=== PATIENT | female | born 1950 | race Caucasian/White ===

== ENCOUNTER → 2016-12-26 | Day surgery (SDC) | payer MEDICARE ==
[~2016-12-26] VITALS: Ht 170.2 cm; Wt 83.5 kg
[~2016-12-26] MED LIST: ASPI-973 PO; CETI10CA PO; FEXO-15 PO; LORA0.5T PO; Lactated Ringer's 1,000 ML IV ONE; Lactated Ringer's 1,000 ML IV SCH; MetoCLOpramide 5 mg/mL 2 mL Inj IVPUSH PRN; Ondansetron 2 mg/mL 2 mL Inj IVPUSH PRN; PROP60TA17 PO; Propofol 10,000 mCg/mL 20 mL Inj ONE; RANI75TA21 PO
[2016-12-26 12:22] VITALS: BP 130/55; PULSE 55; RESP 16; O2SAT 99
--- NOTE | 2016-12-26 12:50 | PCM.HPANE ---
Patient Data Surgeon Admitting Provider: Attending Provider:Boogie Alanis MD Primary Care Physician:Ra Olguin MD Other Provider: Reason for Visit Blood In Stool Ht/WT & BMI Body Mass Index Allergies Coded Allergies: Sulfa (Sulfonamide Antibiotics) (Verified Allergy, Intermediate, HIVES, ) hydrocodone (Verified Adverse Reaction, Unknown, Nausea,Vomiting, 12/11/13) Past Anesthesia History Anesthesia History: Denies:: Abnormal Airway, Anesthesia Reactions, Difficult Intubation, Fam Anesthesia Reaction, Fam Malignant Hypertherm, Malignant Hyperthermia Diabetes History Hx Diabetes?: No MRSA MRSA: No Medications Reported Medications Fexofenadine (Farnaz Allergy)60 Mg Tbrton39 Mg PO BID 12/22/16 Aspirin 81 Mg Juyhob65 Mg PO DAILY Ref 0 03/08/15 Propranolol HCl 60 Mg Iuyfiz91 Mg PO BID 01/29/15 Cetirizine HCl (Zyrtec)10 Mg Uglvizl98 Mg PO prn #30 CAPSULE Ref 0 10/14/14 Ranitidine (Zantac OTC)75 Mg Hrsqob41 Mg PO prn Ref 0 11/04/13 Lorazepam 0.5 Mg Tablet0.5 Mg PO HS PRN For Insomnia Ref 0 11/04/13 History History of ENT Problems?: Yes HEENT History: Positive for:: Sinus Problem (SEASONAL ALLERGIES) Denies:: Abnormal Airway Difficult Intubation Dysphagia Hearing Problem Denture Type: None Teeth Condition: Within Normal Limits Hx of Heart Problems?: No Cardiovascular History: Denies:: AICD Atrial Fibrillation Chest Pain Heart Murmur Hypertension Pacemaker Rheumatic Fever Thrombophlebitis Valvular Heart Disease Hx of Respiratory Problem?: Yes Respiratory History: Positive for:: Use of C-PAP Machine (REGINALD+ SLEEP STUDY 11/2010) Denies:: Asthma COPD Cough Dyspnea Emphysema Hemoptysis Pneumonia Tuberculosis Hx Neurologic Problems?: No Neurological History: Denies:: Alzheimer's Disease CVA Dementia Dizziness Headaches Seizures Hx of GI Problems?: Yes Hx of Problems?: No Genitourinary History: Denies:: HX of Hemodialysis Kidney Stones Urinary Tract Infection Female Hx: Denies:: Currently Endometriosis Pelvic Inflammatory Problems with Breasts? Skin History: Denies:: History Skin Disorders? Pressure Ulcers Hx Musculoskeletal Problems?: No Musculoskeletal History: Denies:: Back Injury Joint Replacement Musculoskeletal Trauma Hx of Psycho/Social Problems?: Yes Psycho Social History: Positive for:: Anxiety Denies:: Bipolar Disorder Hx Depression Hx Surgeries?: Yes (GLO,HYST) Hx Any Other Health Problems?: Yes Other History: Positive for:: Cancer (ENDOMETRIAL CA) Hospitalization Denies:: Endocrine Disease Thyroid Disease History Blood Transfusions: Denies:: Blood Transfusions Hx Diabetes: No Hx Alcohol Use: YesHx Substance Use: No Smoking Status: Unknown if Ever Smoker Have You Smoked inLast 12 mo: No Stop/Bang Risk Assessment Category Category 1A: Patient has history of documented sleep apnea, and HAS NOT received any narcotic, sedative or anesthesia administration during this stay. Category 1B: Patient has history of documented sleep apnea, and HAS received any narcotic , sedative or anesthesia administration during this stay Category 2: Patient has SUSPECTED Obstructive Sleep Apnea, and HAS received any narcotic , sedative or anesthesia administration during this stay. Category 3: Patient has SUSPECTED Obstructive Sleep Apnea and HAS NOT received narcotic, sedative or anesthesia administration during this stay. Category 4: Outpatient in Procedural Areas with known sleep apnea or who screen positive for High Risk via the STOP/BANG questionnaire. Exam Exam General Appearance: Alert HEENT/AIRWAY: MP 2, Neck Movement (FROM, 3 FB) Lungs: Clear to Auscultation Heart: Regular Rate/Rhythm Plan Impression Patient chart reviewed, patient interviewed and anesthestic plan with risks, benefits, and alternatives discussed, and informed consent obtained. NPO per Anesth. Guidelines: Yes ASA Physical Status: ASA2 Mod Systemic Disease Anesthetic Plan: MAC Bene/Risks/Altern/Consents: Yes HP Complete Prior to Induction: Yes Carter Mahan MD Dec 26, 2016 12:15
[2016-12-26 13:12] VITALS: BP 119/63; PULSE 63; RESP 16; O2SAT 98
--- NOTE | 2016-12-26 13:19 | PCM.ANEP1 ---
Post Anesthesia PACU Phase 1 Assessment Vital Signs Vital Signs Date Time Temp Pulse Resp B/P Pulse Ox O2 Delivery O2 Flow Rate FiO2 12/26/16 13:12 63 16 119/63 98 Room Air 12/26/16 12:22 55 16 130/55 99 Room Air Anesthetic Administered: MAC Level of Alertness: Awake, talking JEFFERSON's with Equal Strength: Yes Pain: No Nausea or Vomiting: No CV Function & Hydration Stable: Yes Airway Device: Oxygen Delivery: Room Air Lungs: Clear to Auscultation Dermatome Level: Full Sensation PACU Phase 2 Assessment Complications: No Follow up Care: N/A Patient Instructions Provided: N/A Carter Mahan MD Dec 26, 2016 13:19
[2016-12-26 13:22] VITALS: BP 124/60; PULSE 67; RESP 16; O2SAT 97
[2016-12-26 13:32] VITALS: BP 116/59; PULSE 52; RESP 16; O2SAT 98
--- NOTE | 2016-12-26 14:13 | ENDO ---
[address] [address] ENDOSCOPY PROCEDURE PATIENT: SHANNA ROMERO : 1950 MR#: [id number] ADMIT: 12/26/2016 JOB ID: [id number] DATE OF SERVICE: 12/26/2016 TYPE OF OPERATION: Colonoscopy with biopsy. PREOPERATIVE DIAGNOSIS(ES): 1. Rectal bleeding. 2. Family history of colon cancer in the father. POSTOPERATIVE DIAGNOSIS(ES): Mild erythema in the rectum most consistent with either possibly ulcerative colitis or history of radiation-induced proctitis, status post biopsy. ANESTHESIA: Monitored anesthesia care. COMPLICATIONS: None. BLOOD LOSS: Minimal. DESCRIPTION OF PROCEDURE: After risks and benefits were explained to the patient, informed consent was obtained. After anesthesia administered, colonoscope was then inserted from the rectum to the cecum. Mucosa carefully examined. Prep of the patient was fair. After the procedure was done, the scope withdrawn and the procedure terminated. FINDINGS: Upon inspection of the anus, no masses, hemorrhoids, ulcers, or fissures that were seen. Throughout the entire examination, there were no polyps, masses, or lesions. In the rectum there was mild erythema that was seen in the rectum which possibly raises the issue of either ulcerative colitis or radiation-induced proctitis, given her history of radiation in the past. Retroflexion was normal. IMPRESSION: Mild erythema in the rectum raises the possibility of ulcerative colitis or radiation-induced proctitis, status post biopsy. RECOMMENDATION: Await pathology results. Followup in GI clinic as needed.
--- NOTE | 2016-12-28 15:51 | PATH ---
SURGICAL PATHOLOGY Attending Physician:Boogie Alanis MD CASE STATUS: Signed Out PATIENT NAME: SHANNA ROMERO PID: [id number] : 1950 DATE COLLECTED:12/26/2016 20:18 SPECIMEN: Rectum, Biopsy CLINICAL HISTORY: 1). RECTAL BIOPSY FINAL DIAGNOSIS: 1. Rectum, Biopsy: Colorectal mucosa with mild architectural distortion and mild active colitis. Negative for granulomata, dysplasia or malignancy. IC10: K62.89 NOTE: The histologic differential diagnosis includes chronic infection, drug/toxin-induced injury, and in the appropriate clinical setting, idiopathic inflammatory bowel disease. Definitive features of radiation proctitis are not identified; however, these changes are often confined to the submucosa and are not sampled in superficial mucosal biopsies. The ongoing active colitis argues against a chronic/distant radiation-induced injury. GROSS DESCRIPTION: The specimen is received in one formalin filled container labeled with the patient's name, sublabeled "rectal" and consists of a 0.2 x 0.2 x 0.2 CM portion of tissue which is entirely submitted in one cassette. 12/26/2016DC ICD-9 CODES: CPT CODES: 1: 01394 Electronically Signed Out Nahun Kaplan MD, Ph.D. [facility] [address], [place] [address] Technical component performed at [facility], [address] [place] [address] Ave[address], [place], [address]
== END | disposition home or self-care (01) ==
LOC: END 00:05
PROVIDERS: ATTEND Internal Medicine Gastroenterology
DX: K92.1 Melena (principal); K62.89 Other specified diseases of anus and rectum; G47.33 Obstructive sleep apnea (adult) (pediatric); F41.9 Anxiety disorder, unspecified; Z80.0 Family history of malignant neoplasm of digestive organs
CPT/HCPCS: 45380; J2250; J2704; J7120